=== PATIENT | female | born 1990 | race Caucasian/White ===

== ENCOUNTER 2024-03-11 10:31 | Emergency (ER) | payer MEDICAID ==
[~2024-03-11] VITALS: Ht 170.2 cm; Wt 59.6 kg
[2024-03-11] MEDS ORDERED: ketorolac tromethamine 15mg/ml inj. IM ONE (11:25)
[2024-03-11 11:35] LABS: CLARITY,URINE CLOUDY (Clear); COLOR,URINE RED (Yellow); UA COLLECTION TYPE CLN CATCH MIDSTREAM
[2024-03-11 11:38] LABS: SQUAMOUS EPITHELIAL CELL,UR FEW /LPF (FEW)
[2024-03-11 11:39] LABS: BACTERIA,URINE 1+ /HPF (Neg); RBC,URINE TNTC /HPF (0-2); URINE HCG NEGATIVE (NEG)
[2024-03-11] MEDS: medroxyprogesterone acet. 2.5mg tablet PO SCH (12:05)
[2024-03-11] MEDS: ketorolac trometh. 30mg/ml inj. IM ONE (12:06)
[2024-03-11 12:46] LABS: BASOPHILS # (AUTO) 0.5 X10'3 (0-0.2); BASOPHILS % (AUTO) 8.3 % (0-1); EOSINOPHILS # (AUTO) 0.2 X10'3 (0-0.9); EOSINOPHILS % (AUTO) 3.3 % (0-6); HEMATOCRIT 34.3 % (35.0-45.0); HEMOGLOBIN 11.4 g/dl (12.0-16.0); LYMPHOCYTES # (AUTO) 1.8 X10'3 (1.1-4.8); LYMPHOCYTES % (AUTO) 32.3 % (21-51); MEAN CORPUSCULAR HEMOGLOBIN 29.5 PG (27.0-31.0); MEAN CORPUSCULAR HGB CONC 33.3 g/dL (33.0-36.5); MEAN CORPUSCULAR VOLUME 88.4 FL (78-98); MONOCYTES # (AUTO) 0.4 X10'3 (0-0.9); MONOCYTES % (AUTO) 7.3 % (2-12); NEUTROPHILS # (AUTO) 2.7 X10'3 (1.8-7.7); NEUTROPHILS % (AUTO) 48.8 % (42-75); PLATELET COUNT 270 X10'3 (140-440); RED BLOOD COUNT 3.87 X10'6 (4.20-5.60); RED CELL DISTRIBUTION WIDTH 13.5 % (11.5-14.5); WHITE BLOOD COUNT 5.6 X10'3 (4.5-11.0)
[2024-03-11] MEDS ORDERED: MEDR10TA10 PO (13:01)
[2024-03-11 13:09] VITALS: BP 102/63; PULSE 87; RESP 17; TEMP 98.6; O2SAT 98
== END 2024-03-11 13:10 | disposition home or self-care (01) ==
LOC: ER 10:32
DX: N93.9 Abnormal uterine and vaginal bleeding, unspecified (principal); Z79.899 Other long term (current) drug therapy
CPT/HCPCS: 36415; 81001; 81025; 85025; 87088; 96372; 99283; J1885

== ENCOUNTER 2024-05-25 14:38 | Emergency (ER) | payer MEDICAID ==
[~2024-05-25] VITALS: Ht 170.2 cm; Wt 57.8 kg
[~2024-05-25 14:38] MED LIST: MEDR10TA10 PO
[2024-05-25] MEDS: dexamethasone sod phosphate 10mg/ml inj IM STA (15:32)
[2024-05-25] MEDS: hydrOXYzine 25 MG tablet PO ONE (15:32)
[2024-05-25] MEDS ORDERED: PRED20TA PO (16:48)
[2024-05-25] MEDS ORDERED: HYDR-3686 PO (16:48)
[2024-05-25 16:58] VITALS: BP 110/72; PULSE 70; RESP 16; TEMP 98.8; O2SAT 100
== END 2024-05-25 17:01 | disposition home or self-care (01) ==
LOC: ER 14:38
DX: R21 Rash and other nonspecific skin eruption (principal); Z79.899 Other long term (current) drug therapy
CPT/HCPCS: 96372; 99283; J1100; Q0177

== ENCOUNTER 2024-09-23 14:46 | Emergency (ER) | payer MEDICAID ==
[~2024-09-23] VITALS: Ht 170.2 cm; Wt 64.1 kg
[~2024-09-23 14:46] MED LIST changes: +HYDR-3686 PO
[2024-09-23] MEDS: ipratropium/albuterol 3ml nebule NEB ONE (15:19)
[2024-09-23 15:22] VITALS: PULSE 78; RESP 18; O2SAT 99
[2024-09-23 15:29] VITALS: PULSE 81; RESP 16; O2SAT 99
[2024-09-23] MEDS ORDERED: PRED20TA PO (16:48)
[2024-09-23] MEDS ORDERED: ALBU18HF2 INH (16:48)
[2024-09-23] MEDS ORDERED: DOXY100C43 PO (16:48)
[2024-09-23 17:31] VITALS: TEMP 99.2
[2024-09-23 18:05] VITALS: BP 105/71; PULSE 68; RESP 18; O2SAT 98
== END 2024-09-23 18:10 | disposition home or self-care (01) ==
LOC: ER 14:47
DX: J20.9 Acute bronchitis, unspecified (principal); Z79.899 Other long term (current) drug therapy; Z79.52 Long term (current) use of systemic steroids
CPT/HCPCS: 71045; 93005; 94640; 94760; 99283